=== PATIENT | female | born 1990 | race Caucasian/White ===

== ENCOUNTER 2019-05-12 16:40 | Inpatient (IN) | payer MEDICAID, OTHER ==
[2019-05-12] MEDS ORDERED: ALPRAZolam 0.5 MG TAB PO STA (17:16)
--- NOTE | 2019-05-12 17:17 | ED ---
Psych HPI - General Chief Complaint: Psychiatric Symptoms Stated Complaint: EPS eval Time Seen by Provider: 05/12/19 16:52 Source: patient Mode of arrival: ambulatory - History of Present Illness Initial Comments: Patient is a 29-year-old female with history of depression examine the presenting to emergency Department with chief complaint of suicidal thoughts and acute exudates. Patient reports she was given treated with Prozac for the past 8 years. Patient states that she felt better and gradually tapered off the medication. However, recently she began to have increased anxiety so the primary care started the patient on Lexapro. Patient reports her last week she continues to have acute exudates X. Patient also admits to suicidal ideations with complaining of crashing her car, hanging or cutting her wrists. Patient denies any attempts. Patient is scheduled to see a therapist. - Related Data Allergies Allergy/AdvReac Type Severity Reaction Status Date / Time No Known Allergies Allergy Verified 05/12/19 16:48 Review of Systems ROS Statement: Those systems with pertinent positive or pertinent negative responses have been documented in the HPI. ROS Other: All systems not noted in ROS Statement are negative. Past Medical History Past Medical History: No Reported History History of Any Multi-Drug Resistant Organisms: None Reported Past Surgical History: Cholecystectomy Past Psychological History: Anxiety, Depression Smoking Status: Never smoker Past Alcohol Use History: None Reported Past Drug Use History: None Reported General Exam Limitations: no limitations General appearance: alert, anxious Head exam: Present: atraumatic, normocephalic, normal inspection Eye exam: Present: normal appearance, PERRL, EOMI Pupils: Present: normal accommodation ENT exam: Present: normal exam, normal oropharynx, mucous membranes moist, TM's normal bilaterally, normal external ear exam Neck exam: Present: normal inspection, full ROM Respiratory exam: Present: normal lung sounds bilaterally Cardiovascular Exam: Present: regular rate, normal rhythm, normal heart sounds Extremities exam: Present: normal inspection, full ROM Back exam: Present: normal inspection, full ROM Neurological exam: Present: alert, oriented X3 Psychiatric exam: Present: normal affect, anxious, suicidal ideation Skin exam: Present: warm, dry, intact, normal color. Absent: rash Course Vital Signs 05/12/19 16:46 Temperature 98.5 F Pulse Rate 72 Respiratory 16 Rate Blood Pressure 136/87 O2 Sat by Pulse 99 Oximetry Medical Decision Making - Medical Decision Making Patient is a 29-year-old female history of anxiety presenting to the emergency department with a chief complaint of suicidal thoughts and acute anxiety. On evaluation patient does appear anxious. Patient has no medical complaints. Physical examination is unremarkable. Patient given a single dose of Xanax. EPS evaluated the patient and she'll be admitted for further psychiatric management. Case discussed with physician. - Lab Data Lab Results 05/12/19 Range/Units 17:50 Urine Opiates Screen Not Detected (NotDetected) Ur Oxycodone Screen Not Detected (NotDetected) Urine Methadone Screen Not Detected (NotDetected) Ur Propoxyphene Screen Not Detected (NotDetected) Ur Barbiturates Screen Not Detected (NotDetected) U Tricyclic Antidepress Not Detected (NotDetected) Ur Phencyclidine Scrn Not Detected (NotDetected) Ur Amphetamines Screen Not Detected (NotDetected) U Methamphetamines Scrn Not Detected (NotDetected) U Benzodiazepines Scrn Not Detected (NotDetected) Urine Cocaine Screen Not Detected (NotDetected) U Marijuana (THC) Screen Not Detected (NotDetected) Disposition Clinical Impression: Acute anxiety, Suicidal thoughts Disposition: ADMITTED IP TO THIS HOSP Condition: Good Instructions (If sedation given, give patient instructions): Depression (DC) Additional Instructions: Patient will be admitted Is patient prescribed a controlled substance at d/c from ED?: No Referrals: Cherelle Sims DO [Primary Care Provider] - 1-2 days Time of Disposition: 19:21
[2019-05-12 18:02] LABS: Amphetamine Screen,Urine Not Detected (NotDetected); Barbiturate Screen,Urine Not Detected (NotDetected); Benzodiazepines Screen,Urine Not Detected (NotDetected); Cocaine Screen,Urine Not Detected (NotDetected); Methadone Screen, Urine Not Detected (NotDetected); Opiate Screen,Urine Not Detected (NotDetected); Oxycodone Screen, Urine Not Detected (NotDetected); Phencyclidine Screen,Urine Not Detected (NotDetected); Tricyclic Antidepressant,Urine Not Detected (NotDetected); Urn Cannabinoid Scrn Not Detected (NotDetected)
[2019-05-12] MEDS ORDERED: MAG HYDROX/AL HYDROX/SIMETH 30 ML CUP PO PRN (22:18)
[2019-05-12] MEDS ORDERED: MAGNESIUM HYDROXIDE 2,400 MG/10 ML CUP PO PRN (22:18)
[2019-05-12] MEDS ORDERED: LORazepam 1 MG TAB PO PRN (22:18)
[2019-05-12] MEDS ORDERED: ACETAMINOPHEN TAB 325 MG TAB PO PRN (22:18)
[2019-05-12] MEDS ORDERED: LORazepam 2 MG/ML INJ IM PRN (22:24)
[2019-05-13] MEDS: MULTIVITAMINS, THERA 1 EACH TAB PO SCH (09:38)
[2019-05-13] MEDS: ESCITALOPRAM 10 MG TAB PO SCH (09:38)
[2019-05-13 10:10] LABS: Basophils # (A) 0.1 k/uL (0-0.2); Basophils % (A) 1 %; Eosinophils % (A) 0 %; HCT 47.5 % (34.0-46.0); HGB 15.4 gm/dL (11.4-16.0); Lymphocytes # (A) 1.2 k/uL (1.0-4.8); Lymphocytes % (A) 13 %; MCH 29.3 pg (25.0-35.0); MCHC 32.4 g/dL (31.0-37.0); MCV 90.4 fL (80.0-100.0); Mean Platelet Volume 7.9; Monocytes # (A) 0.3 k/uL (0-1.0); Monocytes % (A) 4 %; Neutrophils # (A) 7.2 k/uL (1.3-7.7); Neutrophils % (A) 81 %; Platelet Count 256 k/uL (150-450); RBC 5.25 m/uL (3.80-5.40); RDW 12.1 % (11.5-15.5)
[2019-05-13 10:26] LABS: ALT 18 U/L (4-34); AST 23 U/L (14-36); African American GFR (CKD) >90 (>60 ml/min/1.73 sqM); Albumin 4.8 g/dL (3.5-5.0); Alkaline Phosphatase 63 U/L (38-126); Anion Gap 8 mmol/L; Blood Urea Nitrogen 10 mg/dL (7-17); Carbon Dioxide 28 mmol/L (22-30); Chloride 102 mmol/L (98-107); Cholesterol 180 mg/dL (<200); Glucose 96 mg/dL (74-99); HDL Cholesterol 79 mg/dL (40-60); LDL Cholesterol,Calculated 88 mg/dL (0-99); Non-African American GFR(CKD) >90 (>60 ml/min/1.73 sqM); Potassium 4.1 mmol/L (3.5-5.1); Sodium 138 mmol/L (137-145); Total Bilirubin 0.6 mg/dL (0.2-1.3); Total Protein 7.9 g/dL (6.3-8.2); Triglycerides 65 mg/dL (<150)
--- NOTE | 2019-05-13 16:16 | P.HP ---
Psychiatric H&P - . H&P Date: 05/13/19 History & Physical: IDENTIFYING DATA: She is a 29-year-old single [place] female who presented to the psychiatric unit with complaints of anxiety, depression and suicidal ideation. HISTORY OF PRESENT ILLNESS: I reviewed the medical record and interviewed the patient. She complained that her anxiety worsened over the 2 weeks prior to admission. She described episodes of increased anxiety associated with physical symptoms consistent with a panic attack. The panic attacks began after she stopped taking the antidepressant Prozac. She has been on Prozac for 8 years for the treatment of depression, anxiety and bulimia. Last year she began to develop twitching of the facial muscles. Her primary care provider evaluated her and suspected that the facial twitching may be related to the Prozac. She weaned herself off the Prozac over a period of 2 months and experienced some reduction in the severity and frequency of the facial twitching. She and her primary were in the process of also weaning her off of BuSpar prescribed for the treatment of chronic anxiety. After she stopped taking the Prozac (maximum dose 20 mg), she experienced worsing anxiety, panic attacks, depression and recently suicidal ideation. The panic attacks have interfered with her ability to work. On the day of her admission she had an intake appointment at [facility]. During the assessment she became acutely distressed leading to referral to the emergency room. She described thoughts of suicide and talked about intrusive thoughts of shooting herself, hanging herself or overdosing on medication. However, she denied that she had intent or plan of acting on these intrusive thoughts. She denied a history of suicide attempts or gestures. She described feelings of hopelessness and helplessness. In addition to feelings of depression and suicidal ideation, she described a return of extreme eating patterns. She has been recently binging on "junk food" and "fast food" but denied that she has been purging. She denied periods of elevated mood or sustained irritability consistent with todd or hypomania. She denied experiencing such psychotic symptoms as hallucinations, delusions or thought disturbances. She does not drink alcohol, smoke cigarettes or use drugs to get high, help her sleep or change her mood. PAST PSYCHIATRIC HISTORY: She's had no prior psychiatric hospitalizations. She met with a psychiatrist and a therapist briefly 8 years ago when she first began treatment for the depression and bulimia nervosa. Her treatment was transferred from primary care provider due to insurance constraints. PAST MEDICAL HISTORY: She denied history of chronic medical problems ALLERGIES: Known drug ALLERGIES SUBSTANCE USE HISTORY: None FAMILY PSYCHIATRIC/SUBSTANCE USE HISTORY: She has a family history of alcohol use problems but denied history of psychiatric illness LEGAL HISTORY: None SOCIAL HISTORY: She was born and raised in an intact family. She has one younger sister. She graduated from high school. She weighed 320 pounds when she was in high school. After high school she intentionally changed her physical activity and diet and lost 170 pounds over 2 years. During this period of weight loss she developed eating disorder characterized by periods of restriction, binging and purging. She is single and has no children. She lives with her parents in [facility]. 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 MENTAL STATUS EXAM: She presented as a casually groomed somewhat distressed 29-year-old female with long black hair. She made eye contact and attended to the interview. She cried intermittently during the interview. She had no distinguishing features or prominent physical abnormalities. She had a distressed facial expression. She was alert and oriented to person, place and time. She showed slight psychomotor retardation but no abnormal movements. Her gait was steady. Her speech was spontaneous with normal rate, rhythm and volume and consistent with her mood. Her affect was depressed and anxious. She denied current suicidal ideation or wishes. She denied homicidal ideation. She expressed feelings of hopelessness, helplessness and worthlessness. She ruminated about the circumstances that led to this hospitalization including the worsening of her anxiety. She did not express phobias, ideas reference, paranoid ideation or delusional thoughts. Her thinking was abstract and associations were coherent, logical and goal directed. She denied hallucinations and did not appear to be responding to internal stimuli. Global impression of intellect is average. She is aware of illness and need for mental health treatment. STRENGTHS: Supportive family, stable housing, stable employment, insight and acceptance of mental health treatment needs WEAKNESSES: History of mental health problems IMPRESSION: She is a 29-year-old single [place] female who presents with worsening depression and anxiety after she discontinued chronic treatment with Prozac. She had been treated Prozac for 8 years successfully but developed a possible neurological side effect and on the advice of her primary she weaned herself off the medication. The facial twitching has subsided which she experienced worsening depression and anxiety. She presented with a recent onset of panic attacks. She describes suicidal thoughts but denied plan or intent. She has no history of psychiatric hospitalization and only received mental health services briefly 8 years ago when she first entered treatment. She should be treated on an inpatient basis with combination of psychopharmacology and multimodal therapy. PRINCIPLE DIAGNOSIS: Major depressive disorder recurrent moderate, panic disorder, history of bulimia nervosa RECOMMENDATION: Continue inpatient hospitalization. Multimodal therapy. Safety precautions. Continue Lexapro 10 mg and titrated according to clinical response and tolerance. Ativan 1 mg by mouth 3 times a day when necessary for anxiety. cut out worker to coordinate discharge and aftercare services including individual therapy. Consult medicine for initial physical exam and medical history. Evaluate clinical status response to treatment daily basis. Allergies Allergy/AdvReac Type Severity Reaction Status Date / Time No Known Allergies Allergy Verified 05/12/19 20:46 Vital Signs Temp 96.9 F L 05/13/19 06:53 Pulse 100 05/13/19 06:53 Resp 16 05/13/19 06:53 BP 140/84 05/13/19 06:53 Pulse Ox 97 05/13/19 06:53 Intake & Output 05/12/19 05/13/19 05/13/19 18:59 06:59 18:59 Weight 70.307 kg 69.173 kg Laboratory Last Values WBC 9.0 k/uL (3.8-10.6) 05/13/19 09:34 RBC 5.25 m/uL (3.80-5.40) 05/13/19 09:34 Hgb 15.4 gm/dL (11.4-16.0) 05/13/19 09:34 Hct 47.5 % (34.0-46.0) H 05/13/19 09:34 MCV 90.4 fL (80.0-100.0) 05/13/19 09:34 MCH 29.3 pg (25.0-35.0) 05/13/19 09:34 MCHC 32.4 g/dL (31.0-37.0) 05/13/19 09:34 RDW 12.1 % (11.5-15.5) 05/13/19 09:34 Plt Count 256 k/uL (150-450) 05/13/19 09:34 Neutrophils % 81 % 05/13/19 09:34 Lymphocytes % 13 % 05/13/19 09:34 Monocytes % 4 % 05/13/19 09:34 Eosinophils % 0 % 05/13/19 09:34 Basophils % 1 % 05/13/19 09:34 Neutrophils # 7.2 k/uL (1.3-7.7) 05/13/19 09:34 Lymphocytes # 1.2 k/uL (1.0-4.8) 05/13/19 09:34 Monocytes # 0.3 k/uL (0-1.0) 05/13/19 09:34 Eosinophils # 0.0 k/uL (0-0.7) 05/13/19 09:34 Basophils # 0.1 k/uL (0-0.2) 05/13/19 09:34 Sodium 138 mmol/L (137-145) 05/13/19 09:34 Potassium 4.1 mmol/L (3.5-5.1) 05/13/19 09:34 Chloride 102 mmol/L (98-107) 05/13/19 09:34 Carbon Dioxide 28 mmol/L (22-30) 05/13/19 09:34 Anion Gap 8 mmol/L 05/13/19 09:34 BUN 10 mg/dL (7-17) 05/13/19 09:34 Creatinine 0.60 mg/dL (0.52-1.04) 05/13/19 09:34 Est GFR (CKD-EPI)AfAm >90 (>60 ml/min/1.73 sqM) 05/13/19 09:34 Est GFR (CKD-EPI)NonAf >90 (>60 ml/min/1.73 sqM) 05/13/19 09:34 Glucose 96 mg/dL (74-99) 05/13/19 09:34 Calcium 10.0 mg/dL (8.4-10.2) 05/13/19 09:34 Total Bilirubin 0.6 mg/dL (0.2-1.3) 05/13/19 09:34 AST 23 U/L (14-36) 05/13/19 09:34 ALT 18 U/L (4-34) 05/13/19 09:34 Alkaline Phosphatase 63 U/L (38-126) 05/13/19 09:34 Total Protein 7.9 g/dL (6.3-8.2) 05/13/19 09:34 Albumin 4.8 g/dL (3.5-5.0) 05/13/19 09:34 Triglycerides 65 mg/dL (<150) 05/13/19 09:34 Cholesterol 180 mg/dL (<200) 05/13/19 09:34 LDL Cholesterol, Calc 88 mg/dL (0-99) 05/13/19 09:34 HDL Cholesterol 79 mg/dL (40-60) H 05/13/19 09:34 TSH 2.920 mIU/L (0.465-4.680) 05/13/19 09:34 Urine Opiates Screen Not Detected (NotDetected) 05/12/19 17:50 Ur Oxycodone Screen Not Detected (NotDetected) 05/12/19 17:50 Urine Methadone Screen Not Detected (NotDetected) 05/12/19 17:50 Ur Propoxyphene Screen Not Detected (NotDetected) 05/12/19 17:50 Ur Barbiturates Screen Not Detected (NotDetected) 05/12/19 17:50 U Tricyclic Antidepress Not Detected (NotDetected) 05/12/19 17:50 Ur Phencyclidine Scrn Not Detected (NotDetected) 05/12/19 17:50 Ur Amphetamines Screen Not Detected (NotDetected) 05/12/19 17:50 U Methamphetamines Scrn Not Detected (NotDetected) 05/12/19 17:50 U Benzodiazepines Scrn Not Detected (NotDetected) 05/12/19 17:50 Urine Cocaine Screen Not Detected (NotDetected) 05/12/19 17:50 U Marijuana (THC) Screen Not Detected (NotDetected) 05/12/19 17:50 05/13/19 11:44 05/13/19 16:11
[2019-05-13 17:48] LABS: Hemoglobin A1C 4.7 % (4.0-6.0)
[2019-05-14] MEDS: ESCITALOPRAM 10 MG TAB PO SCH (09:30)
[2019-05-14] MEDS: MULTIVITAMINS, THERA 1 EACH TAB PO SCH (09:30)
--- NOTE | 2019-05-14 16:06 | P.PN ---
Subjective Progress Note Date: 05/14/19 Principal diagnosis: Major depressive disorder recurrent moderate, panic disorder, history of bulimia nervosa I reviewed the medical record, interviewed the patient and discuss her treatment and treatment plan during team meeting. She denied experiencing panic attacks since admission but has ongoing anxiety that fluctuates in intensity. Her anxiety increased yesterday evening (but did not become a panic attack) and interfered with her ability to sleep. She described several stressors and concerns. She broke up with her boyfriend prior to this admission. She texted him that she is unwell and unable to commit to their relationship. She is distressed over her mother's health and worries about her mother's mortality. Apparently her mother has been diagnosed with a " bone cancer". Probably the most significant stressor was the of her closest friend in February 2019 from a motor vehicle accident. She reports and improvement in her mood since admission to the unit. She denied having thoughts of or suicide. We discussed treatment options and agreed to continue the current dose of Lexapro and consider a trial of Ativan for anxiety. My recommendation was to use anxiety only as needed when she experiences panic attack. Objective - Vital Signs Vital signs: Vital Signs Temp 97.9 F 05/14/19 06:26 Pulse 81 05/14/19 06:26 Resp 16 05/14/19 06:26 BP 113/71 05/14/19 06:26 Pulse Ox 97 05/13/19 06:53 - Exam She presented as a casually groomed young [place] female who was pleasant on approach. She made eye contact and attended the interview. She had no distinguishing features or prominent physical abnormalities. She had a blunted facial expression. She was alert and oriented to person, place and time. Showed slight psychomotor retardation but no abnormal movements. Her speech was spontaneous with slight decrease in rhythm and volume. Her affect was dysphoric and she cried intermittently during the interview. She denied suicidal ideation, wishes or homicidal ideation. She expressed continued feelings of helplessness and worthlessness but denied hopelessness. She ruminated about distress as particular concerns about her mother's health. She did not express ideas of reference, paranoid ideation or delusions. Her thinking was abstract and associations were coherent, logical and goal directed. She denied hallucinations did not appear to responding to internal stimuli. - Labs CBC & Chem 7: 05/13/19 09:34 05/13/19 09:34 Assessment and Plan Assessment: She described continued anxiety but without recent panic attacks. She has symptoms of depression complicated by suicidality. She has multiple stressors. She recognizes the need for continued mental health treatment and is anticipating individual therapy as an outpatient. Plan: Continue inpatient hospitalization. Safety precautions. Encourage continued participation in therapeutic groups and activities. Continue Lexapro 10 mg daily and Ativan 1 mg by mouth 3 times a day when necessary for anxiety. Evaluate clinical status response to treatment on a daily basis.
--- NOTE | 2019-05-14 22:46 | P.CONS ---
History of Present Illness - Reason for Consult Consult date: 05/13/19 - History of Present Illness Nellie Michelle is a 29 yo F with hx depression who presented to the ED with worsening anxiety, depression, and suicidal ideation. She had been on prozac for years but recently tapered off due to side effect of the medication. Since coming off this medication she has suffered increasing anxiety and has experienced panic attacks. She feels that over the past few weeks especially things have become too much to handle. In the ED her vitals and labs were unremarkable, UDS negative. Review of Systems All systems: negative Constitutional: Denies chills, Denies fever Eyes: denies blurred vision, denies pain Ears, nose, mouth and throat: Denies headache, Denies sore throat Cardiovascular: Denies chest pain, Denies shortness of breath Respiratory: Denies cough Gastrointestinal: Denies abdominal pain, Denies diarrhea, Denies nausea, Denies vomiting Genitourinary: Denies dysuria, Denies hematuria Musculoskeletal: Denies myalgias Integumentary: Denies pruritus, Denies rash Neurological: Denies numbness, Denies weakness Psychiatric: Reports as per HPI, Reports anhedonia, Reports anxiety, Reports anxiety attacks, Reports depression, Reports suicidal ideation Endocrine: Denies fatigue, Denies weight change Past Medical History Past Medical History: No Reported History History of Any Multi-Drug Resistant Organisms: None Reported Past Surgical History: Cholecystectomy Smoking Status: Never smoker Medications and Allergies Home Medications Medication Instructions Recorded Confirmed Type Escitalopram Oxalate [Lexapro] 10 mg PO DAILY 05/12/19 05/12/19 History Fem-Trista 1 cap PO DAILY 05/12/19 05/12/19 History Magnesium 200 mg PO DAILY 05/12/19 05/12/19 History Multivitamin/Iron/Folic Acid 1 tab PO DAILY 05/12/19 05/12/19 History [Centrum Women Tablet] busPIRone HCL [Buspar] 3.75 mg PO Q48H 05/12/19 05/12/19 History Allergies Allergy/AdvReac Type Severity Reaction Status Date / Time No Known Allergies Allergy Verified 05/12/19 20:46 Physical Exam Vitals: Vital Signs Temp Pulse Resp BP 05/14/19 06:26 97.9 F 81 16 113/71 General: well nourished, well developed, NAD. Vitals reviewed Eyes: PERRL, EOMI, conjunctiva normal HENT: normocephalic, mucus membranes moist Neck: supple, no JVD Lungs: normal respiratory effort, no wheezes or rales CV: Regular rate and rhythm, no murmur. Peripheral pulses 2+ Abdomen: soft, nondistended, no organomegaly Lymph: no cervical or axillary LAD Skin: warm and dry. Neuro: A&Ox3. No focal deficit. Flat affect Results CBC & Chem 7: 05/13/19 09:34 05/13/19 09:34 Assessment and Plan (1) Acute anxiety Current Visit: Yes Status: Acute Code(s): F41.9 - ANXIETY DISORDER, UNSPECIFIED SNOMED Code(s): 21706659 (2) Suicidal thoughts Current Visit: Yes Status: Acute Code(s): R45.851 - SUICIDAL IDEATIONS SNOMED Code(s): 2901291 Plan: 1. Suicidal ideation. Generalized anxiety disorder with panic. Management per psychiatry. Agree with initiation of SSRI and therapy
[2019-05-15 06:59] VITALS: PULSE 75
[2019-05-15] MEDS: ESCITALOPRAM 10 MG TAB PO SCH (07:57)
[2019-05-15] MEDS: MULTIVITAMINS, THERA 1 EACH TAB PO SCH (07:57)
[2019-05-15] MEDS ORDERED: LORazepam 0.5 MG TAB PO PRN (13:28)
--- NOTE | 2019-05-15 13:28 | P.PN ---
Subjective Progress Note Date: 05/15/19 Principal diagnosis: Major depressive disorder recurrent moderate, panic disorder, history of bulimia nervosa I reviewed the medical record, interviewed the patient and discuss her treatment and treatment plan during team meeting. She complained of feeling anxious but denied that she had experienced panic attack over the last 24 hours. She denied feeling depressed, hopeless or helpless and denied experiencing suicidal ideation. She took 1 mg of Ativan yesterday afternoon for "severe" anxiety. She reported gradual decrease of anxiety with some sedation. We continued to talk about the sources of her anxiety. Today she revealed that her parents are considering moving to [place] and leaving her and her sister in [place] with the family home. Objective - Vital Signs Vital signs: Vital Signs Temp 97.8 F 05/15/19 06:10 Pulse 75 05/15/19 06:10 Resp 14 05/15/19 06:10 BP 118/74 05/15/19 06:10 Pulse Ox 97 05/13/19 06:53 - Exam She was neatly groomed, pleasant and cooperative. Her affect was bright and reactive. Although she complained of subjective anxiety she did not appear anxious during interview. Her thinking was coherent, logical and goal directed. She did not appear to responding to internal stimuli. - Labs CBC & Chem 7: 05/13/19 09:34 05/13/19 09:34 Assessment and Plan Assessment: She described continue to subjective anxiety fluctuates in intensity but without discrete episodes of panic. Her mood has improved considerably since admission and she is denying suicidal ideation Plan: I didn't discharge on 05/16/2019. Safety precautions. Encourage continued participation in therapeutic groups and activities. Continue Lexapro 10 mg daily and decrease Ativan to 0.5 mg 3 times a day when necessary for anxiety due to sedation. Evaluate clinical status response to treatment on a daily basis.
[2019-05-16 06:39] VITALS: BP 114/56; RESP 18; TEMP 97.6
[2019-05-16] MEDS: ESCITALOPRAM 10 MG TAB PO SCH (08:30)
[2019-05-16] MEDS: MULTIVITAMINS, THERA 1 EACH TAB PO SCH (08:30)
[2019-05-16] MEDS ORDERED: LORazepam 0.5 MG TAB PO PRN (11:17)
--- NOTE | 2019-05-16 14:32 | P.DS ---
Providers Date of admission: 05/12/19 21:17 Attending physician: Mario Johnston MD Consults: 05/12/19 22:18 Consult Physician Routine Consulting Provider: Bird Church Consult Reason/Comments: H&P and medical Do you want consulting provider notified?: Yes Primary care physician: Cherelle Sims - Discharge Diagnosis(es) (1) Panic attacks Status: Acute Priority: High (2) Major depressive disorder, recurrent Status: Chronic Priority: Medium (3) Suicidal thoughts Status: Resolved Priority: Low Hospital Course: She is a 29-year-old single [place] female who presented to the psychiatric unit voluntarily with complaints of suicidal ideation, panic attacks and depression. She has a history of depression and treatment for her depressive syndrome. She complained that her anxiety worsened over the 2 weeks prior to admission and describes episodes of anxiety consistent with panic attacks. She had been prescribed Prozac for about 8 years for the treatment of depression and eating disorder. After she developed facial twitching her primary care. Taper off the Prozac and then BuSpar. After she discontinued Prozac she began to have increasing anxiety and developed panic attacks. During the panic episode she began to have thoughts of suicide. She went to [facility] during a period of anxiety and describes suicidal ideation. We admitted through the psychiatric unit and provided a biopsychosocial assessment. The strategy planning consultant boom boss completed initial physical exam and medical history he did not identify chronic medical problem. We prescribed Lexapro 10 mg daily for the treatment of depression and anxiety and prescribed Ativan 1 mg by mouth 3 times a day when necessary for anxiety. She did not experience a panic attack during this hospitalization. She experienced marked relief of intense anxiety with 1 mg dose of Ativan. The only side effect was sedation. We discussed the role of Ativan in the treatment of anxiety and panic attacks and cautioned on the chronic use of benzodiazepines. She participated in therapeutic groups and activities. She posed no management problem and had 2 episodes of behavioral dyscontrol. The neonatal social worker coordinated aftercare services through [facility] At time of discharge she presented as a casually groomed young [place] female who was pleasant on approach. She made eye contact and attended to the interview. She had a bright facial expression. She had normal psychomotor activity. Her speech was spontaneous with normal rate, rhythm and volume. Her affect was bright and stable. She denied suicidal ideation, wishes or homicidal ideation. She denied feeling hopeless, helpless or worthless. She denied ideas reference, paranoid ideation or delusional thoughts. Her thinking was abstract. Associations were coherent and logical. She denied hallucinations and did not appear to be responding to internal stimuli. Patient Condition at Discharge: Good Plan - Discharge Summary New Discharge Prescriptions: New LORazepam [Ativan] 0.5 mg PO DAILY PRN 30 Days #30 tab PRN Reason: Anxiety Continue Multivitamin/Iron/Folic Acid [Centrum Women Tablet] 1 tab PO DAILY Fem-Trista 1 cap PO DAILY Escitalopram Oxalate [Lexapro] 10 mg PO DAILY 30 Days #30 tab Discontinued Magnesium 200 mg PO DAILY busPIRone HCL [Buspar] 3.75 mg PO Q48H Discharge Medication List Fem-Trista 1 cap PO DAILY 05/12/19 [History] Multivitamin/Iron/Folic Acid [Centrum Women Tablet] 1 tab PO DAILY 05/12/19 [History] Escitalopram Oxalate [Lexapro] 10 mg PO DAILY 30 Days #30 tab 05/16/19 [Rx] LORazepam [Ativan] 0.5 mg PO DAILY PRN 30 Days #30 tab 05/16/19 [Rx] Follow up Appointment(s)/Referral(s): [facility] [Outside] - 05/21/19 12:00 pm (05-21-19 @ 12:00 with Willem Iqbal 05-21-19 @ 1:00 with Jacinda Segovia) Cherelle Sims DO [Primary Care Provider] - 1-2 days Patient Instructions/Handouts: Depression (DC) Activity/Diet/Wound Care/Special Instructions: Activity and diet as tolerated. Avoid the use of street drugs and alcohol. Take all medications as prescribed. When you are in need of refills on your medications please contact your medical provider/and or outpatient psychiatrist to have this done. Please go to the scheduled outpatient appointment for aftercare treatment. If symptoms return or become worse, call the crisis line at and/or go the nearest emergency room for evaluation. Discharge Disposition: HOME SELF-CARE
== END 2019-05-16 14:10 | disposition home or self-care (01) | DRG 885 ==
LOC: EC 16:40 → 3MHU 21:17
PROVIDERS: ADMIT Psychiatry & Neurology Psychiatry; ATTEND Psychiatry & Neurology Psychiatry
DX: F33.1 Major depressive disorder, recurrent, moderate (principal); R45.851 Suicidal ideations; F41.0 Panic disorder [episodic paroxysmal anxiety]; F50.9 Eating disorder, unspecified; Z86.59 Personal history of other mental and behavioral disorders; Z79.899 Other long term (current) drug therapy
CPT/HCPCS: 80053; 80061; 80306; 82075; 83036; 84443; 85025; 99284

== ENCOUNTER 2019-09-12 10:15 | Inpatient (IN) | payer MEDICAID, OTHER ==
--- NOTE | 2019-09-12 10:54 | ED ---
General Adult HPI - General Chief complaint: Psychiatric Symptoms Stated complaint: psych evaluation Time Seen by Provider: 09/12/19 10:20 Source: patient, RN notes reviewed, old records reviewed Mode of arrival: ambulatory Limitations: no limitations - History of Present Illness Initial comments: This is a 29-year-old female with a past medical history significant for depression. Patient states she's been off work the last 2 months and she also called her for medicine approximately 2 months ago. Patient states she did that because of some of the physical problems she was having with medication. Patient states her depression is gotten considerably worse and she has been up since last night about midnight. Patient states she got so upset today so suicidal that she tried to hang herself in a closet but the closet pole or belt broke. Patient states her thoughts of suicide or racing in her head she just can't get away from the thoughts. Patient states she cannot see her counselor in person she's off her medication and she's having side effects with whatever medication and give her so she is very distraught - Related Data Home Medications Medication Instructions Recorded Confirmed Fem-Trista 1 cap PO DAILY 05/12/19 05/12/19 Multivitamin/Iron/Folic Acid 1 tab PO DAILY 05/12/19 05/12/19 [Centrum Women Tablet] Previous Rx's Medication Instructions Recorded Escitalopram Oxalate [Lexapro] 10 mg PO DAILY 30 Days #30 tab 05/16/19 LORazepam [Ativan] 0.5 mg PO DAILY PRN 30 Days #30 tab 05/16/19 Allergies Allergy/AdvReac Type Severity Reaction Status Date / Time No Known Allergies Allergy Verified 05/12/19 20:46 Review of Systems ROS Statement: Those systems with pertinent positive or pertinent negative responses have been documented in the HPI. ROS Other: All systems not noted in ROS Statement are negative. Past Medical History Past Medical History: No Reported History History of Any Multi-Drug Resistant Organisms: None Reported Past Surgical History: Cholecystectomy Past Psychological History: Anxiety, Depression Smoking Status: Never smoker General Exam - General Exam Comments Initial Comments: GENERAL: Patient is well-developed and well-nourished. Patient is nontoxic and well- hydrated and is in mild distress. ENT: Neck is soft and supple. No significant lymphadenopathy is noted. Oropharynx is clear. Moist mucous membranes. Neck has full range of motion without eliciting any pain. EYES: The sclera were anicteric and conjunctiva were pink and moist. Extraocular movements were intact and pupils were equal round and reactive to light. Eyelids were unremarkable. PULMONARY: Unlabored respirations. Good breath sounds bilaterally. No audible rales rhonchi or wheezing was noted. CARDIOVASCULAR: There is a regular rate and rhythm without any murmurs gallops or rubs. ABDOMEN: Soft and nontender with normal bowel sounds. SKIN: Skin is clear with no lesions or rashes and otherwise unremarkable. NEUROLOGIC: Patient is alert and oriented x3. Cranial nerves II through XII are grossly intact. Motor and sensory are also intact. Normal speech, volume and content. Symmetrical smile. MUSCULOSKELETAL: Normal extremities with adequate strength and full range of motion. LYMPHATICS: No significant lymphadenopathy is noted PSYCHIATRIC: Patient is very cheerful and sounds very depressed. Patient states she has been having some increasing suicidal thoughts and cannot stop thinking about killing herself. Limitations: no limitations Course Vital Signs 09/12/19 10:23 Temperature 98.2 F Pulse Rate 79 Respiratory 18 Rate Blood Pressure 110/78 O2 Sat by Pulse 100 Oximetry Medical Decision Making - Medical Decision Making EPS evaluated the patient and determined that the patient needed to be admitted. Disposition Clinical Impression: Depression, Attempted suicide Disposition: ADMITTED IP TO THIS HOSP Referrals: None,Stated [REFERRING] - 1-2 days Time of Disposition: 11:20
[2019-09-12 13:09] LABS: Amphetamine Screen,Urine Not Detected (NotDetected); Barbiturate Screen,Urine Not Detected (NotDetected); Benzodiazepines Screen,Urine Not Detected (NotDetected); Cocaine Screen,Urine Not Detected (NotDetected); Methadone Screen, Urine Not Detected (NotDetected); Opiate Screen,Urine Not Detected (NotDetected); Oxycodone Screen, Urine Not Detected (NotDetected); Phencyclidine Screen,Urine Not Detected (NotDetected); Tricyclic Antidepressant,Urine Not Detected (NotDetected); Urn Cannabinoid Scrn Not Detected (NotDetected)
[2019-09-12] MEDS ORDERED: MAG HYDROX/AL HYDROX/SIMETH 30 ML CUP PO PRN (13:09)
[2019-09-12] MEDS ORDERED: LORazepam 1 MG TAB PO PRN (13:09)
[2019-09-12] MEDS ORDERED: MAGNESIUM HYDROXIDE 2,400 MG/10 ML CUP PO PRN (13:09)
[2019-09-12] MEDS ORDERED: ZIPRASIDONE 20 MG VIAL IM PRN (13:09)
[2019-09-12] MEDS ORDERED: ACETAMINOPHEN TAB 325 MG TAB PO PRN (13:09)
--- NOTE | 2019-09-12 14:51 | P.HP ---
Psychiatric H&P - . H&P Date: 09/12/19 History & Physical: IDENTIFYING DATA: She is a 29-year-old single [place] female readmitted to the psychiatric unit with complaints of increased depression, anxiety and suicidal ideation. HISTORY OF PRESENT ILLNESS: I reviewed the medical record and interviewed the patient. She complains that she has felt depressed and anxious since she left our unit in May 2019. The depression and anxiety fluctuates in intensity and when severe is accompanied by thoughts of suicide. She described increasing thoughts of suicide that she describes as intrusive thoughts, "almost as a voice", that instruct her to "kill myself" and to "do it." The day prior to admission she was markedly anxious and depressed. She was unable to sleep and became increasingly too stressed throughout the night. This morning she was markedly distressed and having thoughts of suicide. She alleged that she impulsively grabbed a belt, tied it around his neck then tied it to a secure closet thad. She believes that she passed out because she suddenly became conscious when she fell to the ground. She came out of the bedroom short of breath and her mother and sister were running to her. She explained what she had done and they brought her to the hospital. She complained about her experiences with mental health treatment particular treatment medication. She stopped all her psychotropic medications 2 months ago. She described what appears to be hypomanic episode when the outpatient provider attempted to increase her dose of Lexapro from 10-20 mg. Following the increase, she described marked decrease in sleep, restlessness, irritability and increased energy. These symptoms abated when she discontinued Lexapro. However, she continue with individual therapy sessions through [facility]. She described marked and persistent anxiety that she experiences as muscle twitching and muscle jerking. On a 10 point Likert scale she rated her anxiety as a "10". The anxiety" times" increases in intensity but at those. She did not describe experiences there were consistent with a panic attack. The anxiety is always present and fluctuates in intensity. She is persistently nervous, and anxious and has persistent worries about herself, her health and her family. She is unable to control this anxiety. She denied periods of sustained irritability or elevated mood suggestive of todd or hypomania outside of 1 brief episode described above with Lexapro. She denied obsessions or compulsions. She described intrusive thoughts of suicide but was unsure if the experience was consistent with thought insertion. She denied auditory hallucinations, ideas reference or thought control or thought broadcasting. She does not drink or use drugs to get high, help her sleep or change her mood. PAST PSYCHIATRIC HISTORY: Her only psychiatric hospitalization was to this unit in May 2019 and she was diagnosed with diagnosis of panic attacks, major depressive disorder recurrent and suicidal thoughts. Her discharge medications included Lexapro 10 mg per day and Ativan 0.5 mg daily. She met with a psychiatrist and a therapist briefly 8 years ago when she first began treatment for the depression and bulimia nervosa. Her treatment was transferred from primary care provider due to insurance constraints. She described having been successfully treated Prozac for 8 years but the medication was discontinued when she developed facial twitching. Apparently the facial twitching subsided when she discontinued the Prozac. PAST MEDICAL HISTORY: She denied history of chronic medical problems ALLERGIES: Known drug ALLERGIES SUBSTANCE USE HISTORY: None FAMILY PSYCHIATRIC/SUBSTANCE USE HISTORY: She has a family history of alcohol use problems but denied history of psychiatric illness LEGAL HISTORY: None SOCIAL HISTORY: She was born and raised in an intact family. She has one younger sister. She graduated from high school. She weighed 320 pounds when she was in high school. After high school she intentionally changed her phys ical activity and diet and lost 170 pounds over 2 years. During this period of weight loss she developed eating disorder characterized by periods of restriction, binging and purging. She is single and has no children. She lives with her parents in [facility]. 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 MENTAL STATUS EXAM: She presented as a casually groomed somewhat distressed 29-year-old female with long black hair. She made eye contact and attended to the interview. She had no distinguishing features or prominent physical abnormalities. She had a distressed facial expression. She was alert and oriented to person, place and time. Her gait was slow but steady. She had no abnormal movements. y. Her speech was spontaneous with slightly increased rate but normal rhythm and volume and consistent with her mood. Her affect was depressed and anxious. She described continued suicidal ideation or wishes. She denied homicidal ideation. She expressed feelings of hopelessness, helplessness and worthlessness. She ruminated about the circumstances that led to this hospitalization including the worsening of her depression, anxiety and suicidal thoughts. She did not express phobias, ideas reference, paranoid ideation or delusional thoughts. Her thinking was abstract and associations were coherent, logical and goal directed. She denied hallucinations and did not appear to be responding to internal stimuli. Global impression of intellect is average. She is aware of illness and need for mental health treatment. STRENGTHS: Supportive family, stable housing, stable employment, insight and acceptance of mental health treatment needs WEAKNESSES: History of mental health problems IMPRESSION: She is a 29-year-old single [place] female who presents with worsening depression and anxiety that she discontinue treatment with Lexapro. Her distress escalated to where she attempted to hang herself the morning of admission. She had been treated Prozac for 8 years successfully but developed a possible neurological side effect and on the advice of her primary she weaned herself off the medication. The facial twitching has subsided which she experienced worsening depression and anxiety. She describes suicidal thoughts but denied plan or intent. She has no history of psychiatric hospitalization and only received mental health services briefly 8 years ago when she first entered treatment. She should be treated on an inpatient basis with combination of psychopharmacology and multimodal therapy. PRINCIPLE DIAGNOSIS: Suicide attempt by hanging, Major depressive disorder recurrent severe, generalized anxiety disorder, panic disorder history of bulimia nervosa RECOMMENDATION: Continue inpatient hospitalization. Multimodal therapy. Safety precautions. Consult medicine for initial physical exam and medical history periods obtain collateral information from family. We discussed treatment options and she declined a trial of Lyrica for her anxiety. She also declined treatment with Lamictal. Ativan 1 mg by mouth 3 times a day when necessary for anxiety. mental health worker to coordinate discharge and aftercare services including individual therapy. Consult medicine for initial physical exam and medical history. Evaluate clinical status response to treatment daily basis. Allergies Allergy/AdvReac Type Severity Reaction Status Date / Time No Known Allergies Allergy Verified 09/12/19 12:13 Vital Signs Temp 98.2 F 09/12/19 10:23 Pulse 79 09/12/19 10:23 Resp 17 09/12/19 11:33 BP 110/78 09/12/19 10:23 Pulse Ox 100 09/12/19 10:23 Intake & Output 09/11/19 09/12/19 09/12/19 18:59 06:59 18:59 Weight 65.499 kg Laboratory Last Values Urine Opiates Screen Not Detected (NotDetected) 09/12/19 12:00 Ur Oxycodone Screen Not Detected (NotDetected) 09/12/19 12:00 Urine Methadone Screen Not Detected (NotDetected) 09/12/19 12:00 Ur Propoxyphene Screen Not Detected (NotDetected) 09/12/19 12:00 Ur Barbiturates Screen Not Detected (NotDetected) 09/12/19 12:00 U Tricyclic Antidepress Not Detected (NotDetected) 09/12/19 12:00 Ur Phencyclidine Scrn Not Detected (NotDetected) 09/12/19 12:00 Ur Amphetamines Screen Not Detected (NotDetected) 09/12/19 12:00 U Methamphetamines Scrn Not Detected (NotDetected) 09/12/19 12:00 U Benzodiazepines Scrn Not Detected (NotDetected) 09/12/19 12:00 Urine Cocaine Screen Not Detected (NotDetected) 09/12/19 12:00 U Marijuana (THC) Screen Not Detected (NotDetected) 09/12/19 12:00 09/12/19 14:35
--- NOTE | 2019-09-12 16:19 | P.CONS ---
History of Present Illness - Reason for Consult Consult date: 09/12/19 Medical management - Chief Complaint Depression - History of Present Illness This is a 29-year-old female with no significant past medical history who presented to the emergency room with worsening depression, anxiety, and suicidal thoughts. Patient was evaluated in the ER and currently admitted to the psych unit for further management. I was asked to see her for medical management. Patient does not have any specific concerns or complaints now. She said that she is feeling better. She denies tobacco or substance abuse. Review of Systems Review of system: 14 points review of systems were obtained and were negative except to what were mentioned in the HPI. Past Medical History Past Medical History: No Reported History History of Any Multi-Drug Resistant Organisms: None Reported Past Surgical History: Cholecystectomy Past Psychological History: Anxiety, Depression Smoking Status: Never smoker Medications and Allergies Home Medications Medication Instructions Recorded Confirmed Type Mac's Restless Legs Supplem 2 tab PO HS 09/12/19 09/12/19 History Multivitamins, Thera [Multivitamin 1 tab PO DAILY 09/12/19 09/12/19 History (formulary)] Allergies Allergy/AdvReac Type Severity Reaction Status Date / Time No Known Allergies Allergy Verified 09/12/19 12:13 Physical Exam Vitals: Vital Signs Temp Pulse Resp BP Pulse Ox 09/12/19 11:33 17 09/12/19 10:23 98.2 F 79 18 110/78 100 Intake and Output 09/12/19 09/12/19 09/12/19 06:59 14:59 22:59 Other: Weight 65.499 kg General: The patient is awake and alert, in no distress Eye: there is normal conjunctiva bilaterally. Neck: The neck is supple, there is no JVD. Cardiovascular: Normal S1-S2, no S3-S4, no murmurs. Respiratory: Lungs clear to auscultation bilaterally Gastrointestinal: Abdomen is soft, nontender Musculoskeletal: There is no pedal edema. Neurological:. Speech is normal. Skin: Skin is warm and dry Assessment and Plan Assessment: 1. Major depressive disorder 2. Underlying anxiety 3. Suicidal ideation Management per primary team. No ongoing medical issues otherwise. I will follow-up on her on an as-needed basis. Thank you very much for the co nsultation.
[2019-09-13 06:57] LABS: Basophils % (A) 1 %; Eosinophils # (A) 0.1 k/uL (0-0.7); Eosinophils % (A) 1 %; HGB 15.5 gm/dL (11.4-16.0); Lymphocytes # (A) 1.2 k/uL (1.0-4.8); Lymphocytes % (A) 16 %; MCH 29.3 pg (25.0-35.0); MCHC 32.3 g/dL (31.0-37.0); MCV 90.9 fL (80.0-100.0); Mean Platelet Volume 7.3; Monocytes # (A) 0.4 k/uL (0-1.0); Monocytes % (A) 5 %; Neutrophils # (A) 5.9 k/uL (1.3-7.7); Neutrophils % (A) 76 %; Platelet Count 309 k/uL (150-450); RBC 5.28 m/uL (3.80-5.40); RDW 12.2 % (11.5-15.5); WBC 7.7 k/uL (3.8-10.6)
[2019-09-13 07:07] LABS: ALT 17 U/L (4-34); AST 21 U/L (14-36); African American GFR (CKD) >90 (>60 ml/min/1.73 sqM); Albumin 4.8 g/dL (3.5-5.0); Alkaline Phosphatase 61 U/L (38-126); Anion Gap 8 mmol/L; Blood Urea Nitrogen 9 mg/dL (7-17); Calcium 9.6 mg/dL (8.4-10.2); Carbon Dioxide 29 mmol/L (22-30); Chloride 100 mmol/L (98-107); Cholesterol 175 mg/dL (<200); Glucose 102 mg/dL (74-99); HDL Cholesterol 78 mg/dL (40-60); LDL Cholesterol,Calculated 82 mg/dL (0-99); Non-African American GFR(CKD) >90 (>60 ml/min/1.73 sqM); Potassium 4.3 mmol/L (3.5-5.1); Sodium 137 mmol/L (137-145); Total Bilirubin 0.7 mg/dL (0.2-1.3); Total Protein 7.9 g/dL (6.3-8.2); Triglycerides 73 mg/dL (<150)
[2019-09-13] MEDS ORDERED: QUEtiapine 25 MG TAB PO PRN (11:11)
--- NOTE | 2019-09-13 11:16 | P.PN ---
Progress Note - Text Progress Note Date: 09/13/19 Interval history: Patient was seen wandering the hallways and was directable and agreeable to s peak with designer/writer. Patient states that she is continuing to feel depressed and spoke about her suicide attempt trying to hang herself for coming to the hospital. She was calm and cooperative during the interview and was open to hear about more treatment options. Reference Library Assistant discussed different mood stabilizing agents and the option of possibly doing Seroquel to help her with sleep as patient states that she has racing thoughts at night and has been "awake for 36 hours". Patient claims that she would like to start a low dose of Seroquel to see if it helps her. She also mentioned that she has restless leg symptoms at night was agreeable to start Requip. She claims that she is trying to go to groups. At this time patient denies any suicidal or homicidal ideations intent or plan. Denies any Auditory or visual hallucinations. Patient denies any side effects from the medications and has been compliant with meds. Mental status exam: General Appearance: Patient appears to be stated age is alert, directable, and cooperative. Fair Hygiene. Behavior: No agitated behavior. Patient is calm and directable Speech: Patient's speech is fluent and nonpressured. Soft tone Mood/Affect: Mood is improving mildly, affect is congruent and constricted. Suicidality/Homicidality: Patient denies having any suicidal or homicidal ideation intent or plan. Perceptions: Patient denies any auditory or visual hallucinations. Though content/process: There is no evidence of any delusional thought content and thought process is linear and goal-directed. Memory and concentration: AOX3, grossly intact for the purposes of this session Judgment and insight: Fair Assessment/Plan: Continue with current diagnosis. Patient continues to meet criteria for inpatient psychiatric admission for symptom stabilization and safety.Patient will be maintained on current psychotropic medication regimen with the exception of Seroquel 25 mg daily at bedtime +25 mg daily at bedtime when necessary for insomnia/mood stabilization. Also added on Requip 0.25 mg daily at bedtime for restless leg symptoms. Monitor for medication compliance and for any psychotropic medication side effects. Will continue to monitor ongoing response to treatment. Encouraged participation in milieu.
[2019-09-13 11:29] LABS: Hemoglobin A1C 4.7 % (4.0-6.0)
[2019-09-13] MEDS: QUEtiapine 25 MG TAB PO SCH (21:46)
--- NOTE | 2019-09-14 10:40 | P.PN ---
Progress Note - Text Progress Note Date: 09/14/19 Interval history: Patient was seen sitting in a group this morning and was directable and agre eable to speak with screen writer. Patient states that she is continuing to feel depressed and spoke about her thoughts of suicide and self-harm and claims that she has been looking around the unit for different things to harm herself. She continues to display impulsivity and poor insight/judgment. She states that she refused the Seroquel last night as she states that "I don't want to take the medications, I don't have to". However she did speak about not sleeping well last night only 2-3 hours. She claims that she is trying to go to groups. At this time patient denies any suicidal or homicidal ideations intent or plan. Denies any Auditory or visual hallucinations. Patient denies any side effects from the medications and has been compliant with meds. Mental status exam: General Appearance: Patient appears to be stated age is alert, directable, and cooperative. Fair Hygiene. Behavior: No agitated behavior. Patient is calm and directable. Impulsive. Speech: Patient's speech is fluent and nonpressured. Soft tone Mood/Affect: Mood is depressed, affect is congruent and constricted. Suicidality/Homicidality: Patient denies having any homicidal ideation intent or plan. Admitted to suicidal thoughts with plan. Perceptions: Patient denies any auditory or visual hallucinations. Though content/process: There is no evidence of any delusional thought content and thought process is linear and goal-directed. Memory and concentration: AOX3, grossly intact for the purposes of this session Judgment and insight: Poor/impulsive. Assessment/Plan: Continue with current diagnosis. Patient continues to meet criteria for inpatient psychiatric admission for symptom stabilization and safety.Patient will be maintained on current psychotropic medication regimen and patient was encouraged to take her medications today as she refused the medications yesterday. Ordered one-to-one sitter as patient was endorsing suicidal ideations with a plan on the unit. Monitor for medication compliance and for any psychotropic medication side effects. Will continue to monitor ongoing response to treatment. Encouraged participation in milieu.
[2019-09-14] MEDS: QUEtiapine 25 MG TAB PO SCH (21:27)
[2019-09-15] MEDS: VORTIOXETINE HYDROBROMIDE 10 MG TABLET PO SCH (12:11)
--- NOTE | 2019-09-15 14:28 | P.PN ---
Subjective Progress Note Date: 09/15/19 Principal diagnosis: Suicide attempt by hanging, Major depressive disorder recurrent severe, generalized anxiety disorder, panic disorder history of bulimia nervosa I reviewed the medical record, interviewed the patient and discussed her treatment and treatment plan during team meeting. The covering psychiatrist placed on one-to-one over the weekend concerned about continued suicidal thoughts. She agreed to a trial of Seroquel and Requip over the weekend. She took a 25 mg dose of Seroquel last night and complained of feeling sedated this morning. We discussed treatment of her depression. I explained that her last admission and this admission are both related to her stopping the antidepressant. She again talked about wanting to engage in biofeedback treatment for depression and anxiety; the treatment that she views as "natural" compared to an antidepressant. [facility]. Her provider of cane to genetic testing and has resulted testing recommended Trintillex. We discussed this recommendation and she agreed to begin Trintiles and her sister. The copy of the generic report. She continued decline treatment with interferon for anxiety or Lamictal for her mood. She regrets his suicide attempt and talked about her guilt for the distress that she caused her mother and sister. She was somatically preoccupied and complaining about various somatic concerns. She alleged she has "jerking" and "twitching" of multiple muscles a muscle groups including her arms and legs had jaw and neck. She alleges that the "jerking" and "twitching" at her fears with inability to sleep. Objective - Vital Signs Vital signs: Vital Signs Temp 99.0 F 09/15/19 13:00 Pulse 80 09/15/19 07:02 Resp 16 09/15/19 07:02 BP 100/55 09/15/19 07:02 Pulse Ox 97 09/15/19 07:02 Intake & Output 09/14/19 09/15/19 09/15/19 18:59 06:59 18:59 Weight 65.3 kg - Exam She presented as a casually groomed 29-year-old [place] female who was pleasant on approach. She made eye contact and attended to the interview. She had no distinguishing features. She had a depressed facial expression. She was alert and oriented to person, place and time. Her speech was spontaneous with decreased rate and rhythm. Her affect was depressed and not reactive. She denied current suicidal ideation or wishes. She did not express phobias, ideas reference, paranoid ideation or delusional thoughts or beliefs. She denied hallucinations and did not appear to be responding to internal stimuli. - Labs CBC & Chem 7: 09/13/19 06:43 09/13/19 06:43 Assessment and Plan Assessment: She has a history of a bulimia nervosa presented to the [facility] following a suicide attempt by hanging. She has signs and symptoms of depression and her depression worsened after she stopped taking an antidepressant about 2 months prior to admission. She has multiple somatic complaints. I suspect are related to her emotional distress. Plan: Continue inpatient hospitalization due to depressive symptoms. Continue safety precautions. Discontinue one-to-one after she was transferred to a double occupancy room. Begin Trintilllex 10 mg daily. Continue Seroquel 25 mg at bedtime. Reevaluate Requip 0.25 mg at bedtime. Review genetic testing information on psychotropics. Encourage participation in therapeutic groups and activities. Evaluate clinical status response to treatment daily basis.
[2019-09-15] MEDS: QUEtiapine 25 MG TAB PO SCH (20:36)
[2019-09-16] MEDS: VORTIOXETINE HYDROBROMIDE 10 MG TABLET PO SCH (09:19)
--- NOTE | 2019-09-16 13:17 | P.PN ---
Subjective Progress Note Date: 09/16/19 Principal diagnosis: Suicide attempt by hanging, Major depressive disorder recurrent severe, generalized anxiety disorder, panic disorder history of bulimia nervosa I reviewed the medical record, interviewed the patient and discussed her treatment and treatment plan during team meeting. She was somatically preoccupied and talked about "twitching" that interferes with her sleep. She described unusual symptoms were multiple muscle groups including his legs arms and neck and head involuntarily "jerk". She also described a fullness in her head that is worse in the morning and improves throughout the day. She feels that her mood has improved since admission and denied that she is preoccupied with thoughts of or suicide. She no longer has the "racing thoughts" that were present before she attempted suicide. She rated her anxiety as a 5 on a 10 point like her to scale. She denied side effects to initial dose of Trintellex. She again talked about wanting to treat her depression and anxiety "naturally". She has an appointment with [facility] to be an unlicensed clinic and [facility] called [facility]" that advertises neural feedback training. Objective - Vital Signs Vital signs: Vital Signs Temp 98.4 F 09/15/19 20:39 Pulse 80 09/15/19 07:02 Resp 16 09/15/19 07:02 BP 100/55 09/15/19 07:02 Pulse Ox 97 09/15/19 07:02 - Exam She presented psych has a groomed young Bulgarian female who was pleasant on approach. She made eye contact and attempted to interview. She sat comfortably in the chair throughout the interview. She had no abnormal movements. Her speech was spontaneous with normal rate, rhythm and volume. Her affect was blunted and slightly anxious and depressed. She denied suicidal ideation or wishes. She denied homicidal ideation. She denied feeling hopeless, helpless or worthless. She obsesses over her physical symptoms but did not express ideas reference, paranoid ideation, magical ideation or delusional thoughts. She denied hallucinations did not appear to be responding to internal stimuli. - Labs CBC & Chem 7: 09/13/19 06:43 09/13/19 06:43 Assessment and Plan Assessment: She is much less distressed than on admission. She was reporting decrease anxiety and depression and absence of suicidal thoughts. She has been compliant with prescribed antidepressant. Plan: Continue inpatient hospitalization due to depressive symptoms. Continue safety precautions. Continue Trintilllex 10 mg daily. Continue Seroquel 25 mg at bedtime. Requip 0.25 mg at bedtime. Review genetic testing information on psychotropics. Encourage participation in therapeutic groups and activities. Evaluate clinical status response to treatment daily basis.
[2019-09-16] MEDS: QUEtiapine 25 MG TAB PO SCH (21:27)
[2019-09-17] MEDS: VORTIOXETINE HYDROBROMIDE 10 MG TABLET PO SCH (10:25)
[2019-09-17] MEDS: PREGABALIN 50 MG CAP PO SCH ×2 (10:54→20:14)
--- NOTE | 2019-09-17 12:10 | P.PN ---
Subjective Progress Note Date: 09/17/19 Principal diagnosis: Suicide attempt by hanging, Major depressive disorder recurrent severe, generalized anxiety disorder, panic disorder history of bulimia nervosa I reviewed the medical record, interviewed the patient and discussed her treatment and treatment plan during team meeting. She reported a decrease in anxiety and an improvement in her mood since admission. The level of anxiety fluctuates during the day and is using worse in the evenings particularly around bedtime. She continues to complain of restlessness when she is in bed that is not confined her leg syndrome falls the arms leg and torso. She describes the feeling as "muscle twitches". Reviewed her treatment and she expressed concerns about taking multiple medications. She does not want to continue with Requip after discharge and his reservations to the side effects of Seroquel. She She has had no side effects to Trintellex We reviewed her treatment options including the results of her GeneSight profile. She agreed to a trial of Lyrica to decrease anxiety and muscle tension. Objective - Vital Signs Vital signs: Vital Signs Temp 98.6 F 09/17/19 06:35 Pulse 84 09/17/19 06:35 Resp 14 09/17/19 06:35 BP 117/56 09/17/19 06:35 Pulse Ox 97 09/15/19 07:02 - Exam She was neatly groomed, pleasant and cooperative. She maintained eye contact and attended to the interview. She had a blunted but bright facial expression. She had no abnormal involuntary movements during our encounter. Her affect was blunted but stable and appropriate. Her speech was spontaneous with normal rate, rhythm and volume. She denied suicidal ideation or wishes. She denied homicidal ideation. She denied currently feeling hopeless, helpless or worthless. She requested the actions that led to this hospitalization (the suicide attempt). She did not express ideas reference, paranoid ideation or delusional thoughts. She denied hallucinations did not appear to be responding to internal stimuli - Labs CBC & Chem 7: 09/13/19 06:43 09/13/19 06:43 Assessment and Plan Assessment: She is improve from admission but continues to described subjective and somatic symptoms of anxiety. I am concerned about her ontinued anxiety because the anxiety was a major contributor to the suicide attempt. Plan: Continue inpatient hospitalization. Continue safety precautions. Discontinue Requip and Seroquel. Continue Trintellex 10 milligrams daily. Begin Lyrica 50 mg twice a day reviewed treatment of anxiety. Plan for discharge later this week.
[2019-09-18] MEDS: VORTIOXETINE HYDROBROMIDE 10 MG TABLET PO SCH (08:18)
[2019-09-18] MEDS: PREGABALIN 50 MG CAP PO SCH (08:18)
--- NOTE | 2019-09-18 12:12 | P.PN ---
Subjective Progress Note Date: 09/18/19 Principal diagnosis: Suicide attempt by hanging, Major depressive disorder recurrent severe, generalized anxiety disorder, panic disorder history of bulimia nervosa I reviewed the medical record, interviewed the patient and discussed her treatment and treatment plan during team meeting. She complained of feeling "spacey" after the initial dose of their car 50 mg. However she noticed that the "jerking" that she experiences particularly at nighttime was less severe. She has some difficulty falling asleep was able to sleep throughout the night and felt rested in the morning. Otherwise, her only concern was having opportunities to talk with her family about the circumstances that led to hospitalization. She feels embarrassed by her actions and would like to explain to her sister and her mother her thoughts and feelings so they could understand how she felt and what but her to make the suicide attempt. She reported that anxiety appears less with the Lyrica. She denied feeling depressed or having thoughts of or suicide. Objective - Vital Signs Vital signs: Vital Signs Temp 99.0 F 09/18/19 11:29 Pulse 80 09/18/19 06:08 Resp 14 09/18/19 06:08 BP 111/69 09/18/19 06:08 Pulse Ox 97 09/18/19 06:08 - Exam She was neatly groomed, pleasant and cooperative. She maintained eye contact and attended to the interview. She had a bright facial expression. She had no abnormal involuntary movements during our encounter. Her affect was blunted but stable and appropriate. Her speech was spontaneous with normal rate, rhythm and volume. She denied suicidal ideation or wishes. She denied homicidal ideation. She denied currently feeling hopeless, helpless or worthless. She did not express ideas reference, paranoid ideation or delusional thoughts. She denied hallucinations did not appear to be responding to internal stimuli - Labs CBC & Chem 7: 09/13/19 06:43 09/13/19 06:43 Assessment and Plan Assessment: She is much improved from admission with decrease in depression and anxiety. She's been compliant with prescribed psychotropic medications and reported a decrease in anxiety and decrease of her complaints of "jerking" at nighttime. Plan: Plan for discharge on 09/19/2019. Continue safety precautions. Continue Trintellex 10 milligrams daily. Increase Lyrica to 50 mg in the morning and 100 mg at night. structural ironworker to coordinate a telephonic family meeting.
[2019-09-18] MEDS ORDERED: PREGABALIN 100 MG CAP PO SCH (21:00)
[2019-09-19 06:50] VITALS: BP 155/57; PULSE 74; RESP 17; TEMP 98.4
[2019-09-19] MEDS: VORTIOXETINE HYDROBROMIDE 10 MG TABLET PO SCH (08:24)
[2019-09-19] MEDS ORDERED: PREGABALIN 50 MG CAP PO SCH (09:00)
--- NOTE | 2019-09-19 09:47 | P.DS ---
Providers Date of admission: 09/12/19 12:44 Attending physician: Mario Johnston MD Consults: 09/12/19 13:09 Consult Physician Routine Consulting Provider: Jc Valiente Consult Reason/Comments: New Admission Do you want consulting provider notified?: Yes Primary care physician: René Spivey - Discharge Diagnosis(es) (1) Attempted suicide Current Visit: Yes Status: Acute Priority: Medium (2) Suicidal thoughts Current Visit: No Status: Resolved Priority: Low (3) Acute anxiety Current Visit: No Status: Acute Priority: High (4) Major depressive disorder, recurrent Current Visit: No Status: Chronic Priority: Medium Hospital Course: She is a 29-year-old single [place]i female readmitted to the psychiatric unit with complaints of increased depression, anxiety, suicidal ideation and and an attempted suicide by hanging. She complains that she has felt depressed and anxious since she left our unit in May 2019. The depression and anxiety fluctuates in intensity and when toya re is accompanied by thoughts of suicide. She described increasing thoughts of suicide that she describes as intrusive thoughts, "almost as a voice", that instruct her to "kill myself" and to "do it." The day prior to admission she was markedly anxious and depressed. She was unable to sleep and became increasingly too stressed throughout the night. This morning she was markedly distressed and having thoughts of suicide. She alleged that she impulsively grabbed a belt, tied it around his neck then tied it to a secure closet thad. She believes that she passed out because she suddenly became conscious when she fell to the ground. She came out of the bedroom short of breath and her mother and sister were running to her. She explained what she had done and they brought her to the hospital. She complained about her experiences with mental health treatment particular treatment medication. She stopped all her psychotropic medications 2 months ago. She described what appears to be hypomanic episode when the outpatient provider attempted to increase her dose of Lexapro from 10-20 mg. Following the increase, she described marked decrease in sleep, restlessness, irritability and increased energy. These symptoms abated when she discontinued Lexapro. However, she continue with individual therapy sessions through [facility]. She described marked and persistent anxiety that she experiences as muscle twitching and muscle jerking. On a 10 point Likert scale she rated her anxiety as a "10". The anxiety" times" increases in intensity but at those. She did not describe experiences there were consistent with a panic attack. The anxiety is always present and fluctuates in intensity. She is persistently nervous, and anxious and has persistent worries about herself, her health and her family. She is unable to control this anxiety. She denied periods of sustained irritability or elevated mood suggestive of todd or hypomania outside of 1 brief episode described above with Lexapro. She denied obsessions or compulsions. She described intrusive thoughts of suicide but was unsure if the experience was consistent with thought insertion. She denied auditory hallucinations, ideas reference or thought control or thought broadcasting. She does not drink or use drugs to get high, help her sleep or change her mood. Her only psychiatric hospitalization was to this unit in May 2019 and she was diagnosed with diagnosis of panic attacks, major depressive disorder recurrent and suicidal thoughts. Her discharge medications included Lexapro 10 mg per day and Ativan 0.5 mg daily. She met with a psychiatrist and a therapist briefly 8 years ago when she first began treatment for the depression and bulimia nervosa. Her treatment was transferred from primary care provider due to insurance constraints. She described having been successfully treated Prozac for 8 years but the medication was discontinued when she developed facial twitching. Apparently the facial twitching subsided when she discontinued the Prozac. We admitted to the psychiatric unit under the care of this telegraphic typewriter installer. We provided a comprehensive biopsychosocial assessment. The home energy consultant supervisor induction coordination power engineer completed initial physical exam and medical history and did not diagnosis of major medical condition. She was resistant to taking either an antianxiety or antidepressant when she initially arrived on the unit. She perseverated about treating her anxiety depression "naturally" and talked about her disappointment when her appointment with a community clinic to provide 0 feedback was counseled due to the pandemic. She participated in therapeutic groups and activities. She presents money management problem had no episodes of behavioral dyscontrol. She eventually agreed to a trial of Trintellex 10 mg daily; medications that her outpatient provider had recommended. We initially treated her anxiety and somatic complaints including complaints involuntary muscle "jerking" with a combination of Seroquel 25 mg at bedtime and Requip 0.5 mg at bedtime. She eventually agreed to a trial of Lyrica for anxiety and somatic symptoms. She reported a marked decrease in anxiety, improvement in sleep and decrease in the subjective complaint of involuntary muscle jerking at nighttime with 50 mg in the morning and 100 mg at night. At time of discharge she presented as a casually groomed 29-year-old [place]i female who was pleasant on approach. She made eye contact and attended to interview. She had no distinguishing features or prominent physical abnormalities. She had a bright facial expression. She showed no abnormality of psychomotor activity. She was not restless, agitated or had psychomotor retardation. Her speech was spontaneous with normal rate, rhythm and volume. Her affect was bright, stable and appropriate. She denied suicidal ideation, wishes homicidal ideation. She denied feeling hopeless, helpless or worthless. She did not express ideas reference, paranoid ideation or delusions. Her thinking was abstract and associations were coherent, logical and goal directed. She denied hallucinations and did not appear to responding to in ternal stimuli. The plan is to continue with Trintellix 10 milligrams daily, Lyrica 50 mg in morning and 100 mg at bedtime (titrated to according to relief of psychiatric and somatic anxiety symptoms), and follow-up with [facility]. She is also interested and to feedback for treatment of anxiety and depression. Patient Condition at Discharge: Stable Plan - Discharge Summary New Discharge Prescriptions: New Pregabalin [Lyrica] 50 mg PO DAILY #30 cap Pregabalin [Lyrica] 100 mg PO HS #30 cap Vortioxetine Hydrobromide [Trintellix] 10 mg PO DAILY #30 tablet Continue Multivitamins, Thera [Multivitamin (formulary)] 1 tab PO DAILY Mac's Restless Legs Supplem 2 tab PO HS Discharge Medication List Mac's Restless Legs Supplem 2 tab PO HS 09/12/19 [History] Multivitamins, Thera [Multivitamin (formulary)] 1 tab PO DAILY 09/12/19 [History] Pregabalin [Lyrica] 50 mg PO DAILY #30 cap 09/19/19 [Rx] Pregabalin [Lyrica] 100 mg PO HS #30 cap 09/19/19 [Rx] Vortioxetine Hydrobromide [Trintellix] 10 mg PO DAILY #30 tablet 09/19/19 [Rx] Follow up Appointment(s)/Referral(s): [facility] [place] [Outside] - 09/23/19 11:00 am (09-23-19 @ 11:00 with Willem Iqbal on the phone. 09-24-19 @ 2:[address] Jacinda Segovia via [employer] at [place] office) None,Stated [REFERRING] - 1-2 days Activity/Diet/Wound Care/Special Instructions: Activity and diet as tolerated. Avoid the use of street drugs and alcohol. Take all medications as prescribed. When you are in need of refills on your medications please contact your medical provider and/or outpatient psychiatrist to have this done. Please go to scheduled outpatient appointment for aftercare treatment. If symptoms return or become worse, call the crisis line at and/or go to the nearest emergency room for evaluation. Follow up with Neurology per Dr. Johnston Discharge Disposition: HOME SELF-CARE
== END 2019-09-19 15:11 | disposition home or self-care (01) | DRG 885 ==
LOC: EC 10:15 → 3MHU 12:44
PROVIDERS: ADMIT Psychiatry & Neurology Psychiatry; ATTEND Psychiatry & Neurology Psychiatry
DX: F33.2 Major depressive disorder, recurrent severe without psychotic features (principal); R45.851 Suicidal ideations; F41.0 Panic disorder [episodic paroxysmal anxiety]; F41.1 Generalized anxiety disorder; G25.81 Restless legs syndrome; Z03.89 Encounter for observation for other suspected diseases and conditions ruled out; Z79.899 Other long term (current) drug therapy; Z90.49 Acquired absence of other specified parts of digestive tract
CPT/HCPCS: 80053; 80061; 80306; 82075; 83036; 84443; 85025; 99285